=== PATIENT | female | born 1955 | race Caucasian/White ===

== ENCOUNTER 2017-02-14 06:21 | Day surgery (SDC) | payer OTHER ==
[2017-02-14] MEDS ORDERED: Versed 2 MG/2 ML Injection IV ONE (06:22)
[2017-02-14] MEDS ORDERED: DIPRIVAN 200 MG/20 ML IV ONE (06:22)
[2017-02-14] MEDS ORDERED: Lactated Ringers 1,000 ML IV SCH (06:30)
--- NOTE | 2017-02-14 08:33 | OP ---
SURGERY DATE/TIME: 02/14/2017 0749 PREOPERATIVE DIAGNOSIS: Rectal bleed, left lower quadrant abdominal pain. POSTOPERATIVE DIAGNOSES: 1) Sigmoid diverticulosis. 2) Sigmoid polyp. 3) Diminutive rectal polyps. PROCEDURE: Colonoscopy with polypectomy and rectal biopsy. SURGEON: Dr. Mariano. ANESTHESIA: MAC. Medications given by anesthesia department. HISTORY: The patient is a 61 year-old white female who presents now having never had a colonoscopy. She is complaining of left lower quadrant abdominal pain, rectal bleeding. The patient was felt the need to have endoscopic evaluation. She was appraised of the risks of the procedure including the risk of perforation, phlebitis, untoward reaction to medication, bleeding and missed lesions. The patient verbalized her understanding and desired to have the procedure performed. DESCRIPTION OF PROCEDURE: The patient was given the medications by the anesthesia department. She had continuous pulse oximetry, ECG monitoring, intermittent blood pressure monitoring, and tidal CO2 monitoring during the examination. She was placed in the left lateral decubitus position. A digital rectal examination was performed and revealed normal anal sphincter tone and no masses. The flexible Olympus pediatric colonoscope was used to intubate the rectum. A view of the colon was developed sequentially to the cecum. Upon insertion and withdrawal there was noted sigmoid diverticula that were mild to moderate and relatively small in nature. There was also noted to be a 1.2 cm size in diameter polyp in the sigmoid colon and this was removed using polypectomy snare and retrieved for pathologic evaluation. There were also noted to be small diminutive polyps in the rectum. These were biopsied using cold biopsy technique to destroy the lesions. Upon insertion and withdrawal including a retroflex view in the rectum, no other mucosal lesions being encountered the scope was removed from the patient who tolerated the procedure well and was sent back to OP recovery in good condition. The prep was noted to be fair to good.
[2017-02-14 09:36] VITALS: BP 147/54; PULSE 67; O2SAT 97
== END 2017-02-14 09:15 | disposition home or self-care (01) ==
LOC: SDC 06:21
PROVIDERS: ATTEND Family Medicine
PROC: 0DBN8ZX Excision of Sigmoid Colon, Via Natural or Artificial Opening Endoscopic, Diagnostic (ICD-10-PCS; principal; 2017-02-14)
PROC: 0DBP8ZX Excision of Rectum, Via Natural or Artificial Opening Endoscopic, Diagnostic (ICD-10-PCS; 2017-02-14)
DX: K62.5 Hemorrhage of anus and rectum (principal); K57.30 Diverticulosis of large intestine without perforation or abscess without bleeding; K62.1 Rectal polyp; R10.32 Left lower quadrant pain; K63.5 Polyp of colon
CPT/HCPCS: 00810; 36415; 88305; J2250; J2704

== ENCOUNTER 2020-10-25 14:40 | Day surgery (SDC) | payer MEDICARE ==
[2020-10-25] MEDS ORDERED: Xylocaine 1% Vial 30 ML PF IJ ONE (14:41)
[2020-10-25] MEDS ORDERED: Decadron 4 MG INJ IV ONE (14:41)
[2020-10-25] MEDS ORDERED: Sodium Chloride 0.9(Preservative Free) 10 ML IJ ONE (14:41)
[2020-10-25] MEDS ORDERED: Lactated Ringers 1,000 ML IV ONE (16:22)
--- NOTE | 2020-10-25 17:38 | XRAY ---
Indication: Cervical KYLE. Intraoperative fluoroscopy provided for 39 seconds. 2 digital spot images submitted for interpretation demonstrates posterior needle tip projecting posterior to the cervical thoracic junction. Small amount of contrast injected for needle tip placement. Correlate with intraoperative findings/report.
--- NOTE | 2020-10-25 17:41 | XRAY ---
39 seconds of fluoroscopy was used in surgery for a cervical KYLE.
== END 2020-10-25 17:01 | disposition home or self-care (01) ==
LOC: SDC-PAIN 14:40
PROVIDERS: ATTEND Psychiatry & Neurology Pain Medicine
DX: M54.12 Radiculopathy, cervical region (principal); I10 Essential (primary) hypertension; E03.9 Hypothyroidism, unspecified; F41.9 Anxiety disorder, unspecified; F32.9 Major depressive disorder, single episode, unspecified; Z79.899 Other long term (current) drug therapy
CPT/HCPCS: 62321; 72040; 77003; 82947; J1100; J2001; Q9967

== ENCOUNTER 2020-12-06 09:41 | Day surgery (SDC) | payer OTHER ==
[2020-12-06] MEDS ORDERED: Depo-Medrol 40 MG/ML IM ONE (09:42)
[2020-12-06] MEDS ORDERED: BUPIVACAINE 0.5% VIAL IJ ONE (09:42)
[2020-12-06] MEDS ORDERED: DIPRIVAN 200 MG/20 ML IV ONE (11:01)
[2020-12-06] MEDS ORDERED: Lactated Ringers 1,000 ML IV ONE (11:33)
--- NOTE | 2020-12-06 12:16 | XRAY ---
9 seconds fluoroscopy time in surgery for right SI joint injection.
--- NOTE | 2020-12-06 12:20 | XRAY ---
Indication: Right SI joint injection. Intraoperative fluoroscopy provided for 9 seconds. 2 digital spot image submitted for interpretation demonstrates posterior needle tip projecting over the inferior right SI joint. Correlate with intraoperative findings/report.
== END 2020-12-06 11:40 | disposition home or self-care (01) ==
LOC: SDC-PAIN 09:41
PROVIDERS: ATTEND Psychiatry & Neurology Pain Medicine
DX: M46.1 Sacroiliitis, not elsewhere classified (principal); E11.9 Type 2 diabetes mellitus without complications; I10 Essential (primary) hypertension; E03.9 Hypothyroidism, unspecified; Z79.899 Other long term (current) drug therapy
CPT/HCPCS: 27096; 72020; 77002; 82947; J1030; J2704; G0260

== ENCOUNTER 2021-01-17 11:34 | Day surgery (SDC) | payer OTHER ==
[2021-01-17] MEDS ORDERED: BUPIVACAINE 0.5% VIAL IJ ONE (11:35)
[2021-01-17] MEDS ORDERED: Depo-Medrol 40 MG/ML IM ONE (11:35)
[2021-01-17] MEDS ORDERED: DIPRIVAN 200 MG/20 ML IV ONE (12:53)
[2021-01-17] MEDS ORDERED: Decadron 4 MG INJ ONE (12:53)
[2021-01-17] MEDS ORDERED: Zofran 4 MG/2 ML VIAL ONE (12:53)
[2021-01-17] MEDS ORDERED: BENADRYL 50 MG/ML ONE (12:53)
[2021-01-17] MEDS ORDERED: Lactated Ringers 1,000 ML IV ONE (13:49)
--- NOTE | 2021-01-17 17:02 | XRAY ---
30 seconds fluoroscopy time in surgery for intra-articular injection of the right shoulder.
--- NOTE | 2021-01-19 09:17 | XRAY ---
Indication: Right shoulder intra-articular injection. Intraoperative fluoroscopy was provided for 30 seconds. A single digital spot image submitted for interpretation demonstrates a needle tip overlying the superior aspect of the right humeral head just medial to the midpoint. A small amount of contrast has been injected for needle tip placement. Correlate with intraoperative findings/report.
== END 2021-01-17 13:20 | disposition home or self-care (01) ==
LOC: SDC-PAIN 11:34
PROVIDERS: ATTEND Psychiatry & Neurology Pain Medicine
DX: M19.012 Primary osteoarthritis, left shoulder (principal); E11.9 Type 2 diabetes mellitus without complications; Z79.899 Other long term (current) drug therapy
CPT/HCPCS: 20610; 73030; 77002; 82947; J1030; J1100; J1200; J2405; J2704; Q9966

== ENCOUNTER 2023-01-01 06:26 | Day surgery (SDC) | payer MEDICARE ==
[2023-01-01 06:50] VITALS: RESP 16
[2023-01-01] MEDS ORDERED: Lactated Ringers 1,000 ML IV SCH (07:00)
[2023-01-01] MEDS ORDERED: DIPRIVAN 200 MG/20 ML IV ONE ×2 (07:54→08:18)
[2023-01-01] MEDS ORDERED: Decadron 4 MG INJ ONE (07:54)
[2023-01-01] MEDS ORDERED: Xylocaine-Mpf 2% 5 Ml Vial ONE (07:54)
[2023-01-01] MEDS ORDERED: Zofran 4 MG/2 ML VIAL ONE (07:54)
[2023-01-01] MEDS ORDERED: Versed 2 MG/2 ML Injection ONE (07:54)
[2023-01-01 08:57] VITALS: TEMP 97.3
[2023-01-01 09:11] VITALS: BP 138/87; PULSE 96; O2SAT 98
--- NOTE | 2023-01-01 09:16 | OP ---
SURGERY DATE/TIME: 01/01/2023 0802 PREOPERATIVE DIAGNOSIS: History of colon polyps. POSTOPERATIVE DIAGNOSES: 1) Normal colon. 2) Diverticulosis. PROCEDURE: Colonoscopy. SURGEON: Bakari Ozuna M.D. ANESTHESIA: MAC by Chava Palmer CRNA. ESTIMATED BLOOD LOSS: None. SPECIMENS: None. DESCRIPTION OF PROCEDURE: After informed written consent was obtained, the patient was taken to the endoscopy suite. The patient was placed in left lateral decubitus position and anesthesia was titrated to desired level of consciousness. Digital rectal exam showed normal sphincter tone and no internal lesions. The scope was inserted into the rectum and sequentially the entire colonic mucosa was traversed. The level of cecum was reached and verified with direct visualization of the ileocecal valve. Upon withdrawal careful mucosal inspection revealed scattered diverticula but no other lesions were encountered. Prep was noted to be poor to fair with liquid stool scattered throughout the entire length of the colon. Prior to withdrawal retroflexion showed no internal lesions. The scope was removed. The patient was transferred to the recovery room in good condition.
== END 2023-01-01 09:20 | disposition home or self-care (01) ==
LOC: SDC 06:26
PROVIDERS: ATTEND Family Medicine
DX: Z09 Encounter for follow-up examination after completed treatment for conditions other than malignant neoplasm (principal); Z86.010 Personal history of colon polyps; K57.30 Diverticulosis of large intestine without perforation or abscess without bleeding; E11.9 Type 2 diabetes mellitus without complications
CPT/HCPCS: 82947; 93005; J1100; J2250; J2405; J2704

== ENCOUNTER 2023-12-26 12:06 | Emergency (ER) | payer MEDICARE ==
--- NOTE | 2023-12-26 12:12 | ERPHSYRPT ---
- History of Present Illness Time Seen by Provider: 12/26/23 12:12 Source: patient Exam Limitations: no limitations Physician History: This is a 68-year-old white female patient that drove herself to the hospital today because of right buttock pain that radiates posteriorly and caudally down the posterior aspect of her right leg. There is been no injury. She has had her piriformis muscle injected in the past by pain specialist Dr. Rodriguez. The symptoms are similar. It has been quite sometime since she seen Dr. Rodriguez. Her primary care provider is Dr. Rodriguez. The patient's symptoms have been present for a week. The patient does not have urinary or bowel incontinence. She is not constipated. Patient has a history of diabetes, hypothyroidism, hypertension, anxiety and has asthma/COPD. Patient drove herself but can get a ride home. Patient states that she has had Demerol in the past as far as narcotic goes and she also tolerated [place] narcotic medication. Method of Injury: other (No injury or trauma) Lower Extremities Pain: hip: right (Buttock), leg: right (Hamstring) Modifying Factors: Improves With: movement Associated Symptoms: other (Can bear weight but it hurts to do so) Allergies/Adverse Reactions: cephalexin monohydrate [From Keflex] Allergy (Intermediate, Verified 12/26/23 12:15) Difficulty Breathing hives itching and nausea oxycodone Adverse Reaction (Verified 12/26/23 12:15) Home Medications: Levothyroxine Sodium 100 Mcg [Synthroid 100 Mcg] 125 mcg PO DAILY 10/03/14 [History] Lorazepam 0.5 mg [Ativan 0.5 MG] 1 mg PO HS 02/07/17 [History] Triamterene [Dyrenium] 2 disk PO DAILY 02/07/17 [History] Albuterol 8 gm Mdi Hfa [Ventolin Hfa MDI] 2 puffs IH QID PRN PRN 12/24/22 [History] Benazepril HCl [Lotensin] 20 mg PO DAILY 12/24/22 [History] Bupropion HCl 150 mg Sr [Wellbutrin SR 150 MG] 150 mg PO BID 12/24/22 [History] Glipizide 5 mg [Glucotrol 5 MG] 5 mg PO DAILY 12/24/22 [History] Metformin HCl 500 mg [Glucophage 500 MG] 500 mg PO DAILY 12/24/22 [History] Semaglutide [Ozempic] 0.5 mg SQ BID 12/24/22 [History] Semaglutide [Ozempic] 1 ea UD 12/26/23 [History] Travel Risk - International Travel Have you traveled outside of the country in past 3 weeks: No - Emerging Infectious Disease Are you exhibiting symptoms associated with any current EIDs: No - Review of Systems Constitutional: No Symptoms Eyes: No Symptoms Ears, Nose, & Throat: No Symptoms Respiratory: No Symptoms Cardiac: No Symptoms Abdominal/Gastrointestinal: No Symptoms Genitourinary Symptoms: No Symptoms Musculoskeletal: Other (Right buttock and right hamstring shooting sharp pain), No Injury Skin: No Symptoms Neurological: No Symptoms Psychological: No Symptoms Endocrine: No Symptoms Hematologic/Lymphatic: No Symptoms Immunological/Allergic: No Symptoms All Other Systems: Reviewed and Negative - Past Medical History Pertinent Past Medical History: Yes Neurological History: Seizures ENT History: No Pertinent History Cardiac History: No Pertinent History Respiratory History: No Pertinent History Endocrine Medical History: Diabetes Type II, Hypothyroidism Musculoskeletal History: Degenerative Disk Disease, Rheumatoid Arthritis GI Medical History: No Pertinent History History: No Pertinent History Psycho-Social History: Anxiety, Depression Female Reproductive Disorders: No Pertinent History - Past Surgical History Past Surgical History: Yes Neuro Surgical History: No Pertinent History Cardiac: No Pertinent History Respiratory: No Pertinent History Gastrointestinal: Cholecystectomy Genitourinary: No Pertinent History Musculoskeletal: Joint Replacement, Orthopedic Surgery Female Surgical History: Hysterectomy Other Surgical History: back, L knee - Social History Smoking Status: Never smoker Exposure to second hand smoke: No Drug Use: none Patient Lives Alone: Yes - Nursing Vital Signs Nursing Vital Signs: Initial Vital Signs Temperature 97.0 F 12/26/23 12:17 Pulse Rate 112 H 12/26/23 12:17 Blood Pressure 141/96 12/26/23 12:17 O2 Sat by Pulse Oximetry 98 12/26/23 12:17 Pain Scale Pain Intensity 9 - Physical Exam General Appearance: no apparent distress, alert, anxiety Eyes, Ears, Nose, Throat Exam: normal ENT inspection, moist mucous membranes Neck Exam: normal inspection, non-tender, supple, full range of motion Cardiovascular/Respiratory Exam: chest non-tender, no respiratory distress Gastrointestinal/Abdominal Exam: non-tender Back Exam: normal inspection, normal range of motion, No CVA tenderness, No vertebral tenderness Hips Exam: right: soft tissue tenderness (Buttock), left: non-tender, bilateral: normal inspection, normal range of motion, no evidence of injury Legs Exam: right leg: soft tissue tenderness (Hamstring), left leg: non-tender, bilateral leg: normal inspection, normal range of motion, no evidence of injury Knees Exam: bilateral knee: non-tender, normal inspection, normal range of motion, no evidence of injury Ankle Exam: bilateral ankle: non-tender, normal inspection, normal range of motion, no evidence of injury Foot Exam: bilateral foot: non-tender, normal inspection, normal range of motion, no evidence of injury Neuro/Tendon Exam: normal sensation, normal motor functions, normal tendon functions Mental Status Exam: alert, oriented x 3, cooperative Skin Exam: normal color, warm, dry SpO2 Interpretation: normal O2 Delivery: Room Air - Course Nursing assessment & vital signs reviewed: Yes Ordered Tests: Medication Summary Generic Name Dose Route Start Last Admin Trade Name Freq PRN Reason Stop Dose Admin Methylprednisolone Sodium 0 mg 12/26/23 12:46 Succinate 125 mg/ Sterile IM 12/26/23 12:47 Water 2 ml STAT ONE Meperidine HCl 12.5 mg 12/26/23 12:44 Meperidine Hcl 25 Mg Syringe IM 12/26/23 12:45 STAT ONE Ondansetron HCl 4 mg 12/26/23 12:45 Zofran 4 Mg/Udtablet Orally Disintegrating PO 12/26/23 12:46 STAT ONE Orphenadrine Citrate 60 mg 12/26/23 12:46 Orphenadrine Citrate 60 Mg/2 Ml Vial IM 12/26/23 12:47 STAT ONE - Progress Progress: improved, pain not gone completely Progress Note: 12/26/23 12:53 My medical decision making and the assignment of low complexity to this patient's medical issue today is based on review of the patient's past medical history, review the patient's medication list, review the patient drug allergy list, history of present illness and physical findings on examination. The workup in this patient does not require radiographic or laboratory studies. The patient did not suffer any acute fall or trauma. Differential diagnosis includes but is not limited to piriformis syndrome, sciatica Counseled pt/family regarding: diagnosis, need for follow-up Medical Desision Making - Diagnostic Testing Diagnostic test were ordered, analyzed, and reviewed by me: No - Risk of complications The pt has a mod risk of morbidity or mortality based on: Need for prescription drug management - Departure Departure Disposition: Home Clinical Impression: Sciatica of right side Condition: Stable Critical Care Time: No Referrals: RUDDY RODRIGUEZ MD [Primary Care Provider] - Follow up/PCP as directed Additional Instructions: Take your medication as prescribed. Keep your appointment with Dr. Rodriguez that has been scheduled for you. Continue your other medications as prescribed. Prescriptions: Prednisone 10 mg [Deltasone 10 mg] 10 mg PO TID #12 tablet Orphenadrine Citrate 100 mg [Norflex 100 MG Tablet] 100 mg PO BID #10 tab
[2023-12-26 12:19] VITALS: TEMP 97
[2023-12-26] MEDS ORDERED: DEMEROL 50 MG ONE (12:57)
[2023-12-26] MEDS ORDERED: Sterile H2O 10 ml IJ ONE (12:59)
[2023-12-26] MEDS ORDERED: ZOFRAN ODT 4 MG ONE (12:59)
[2023-12-26] MEDS ORDERED: solu-MEDROL ONE (13:00)
[2023-12-26] MEDS ORDERED: Norflex 60 MG/2 ML ONE (13:00)
[2023-12-26] MEDS: solu-MEDROL 125 MG, Sterile H2O 10 ml 2 ML IM ONE (13:06)
[2023-12-26] MEDS: ZOFRAN ODT 4 MG PO ONE (13:07)
[2023-12-26] MEDS: Norflex 60 MG/2 ML IM ONE (13:07)
[2023-12-26] MEDS: DEMEROL 50 MG IM ONE (13:08)
[2023-12-26] MEDS: DEMEROL 25MG SYRINGE IM ONE (13:08)
[2023-12-26 13:16] VITALS: RESP 18
[2023-12-26 13:55] VITALS: BP 120/64; PULSE 89; O2SAT 99
== END 2023-12-26 13:55 | disposition home or self-care (01) ==
LOC: ED 12:06
DX: M54.31 Sciatica, right side (principal); E11.9 Type 2 diabetes mellitus without complications; I10 Essential (primary) hypertension; Z79.52 Long term (current) use of systemic steroids; Z79.84 Long term (current) use of oral hypoglycemic drugs; Z79.85 Long-term (current) use of injectable non-insulin antidiabetic drugs; Z79.899 Other long term (current) drug therapy
CPT/HCPCS: 96372; 99283; J2175; J2360; J2919; Q0162